=== PATIENT | female | born 1970 | race Caucasian/White ===

== ENCOUNTER → 2023-10-14 11:43 | Outpatient (CLI) | payer OTHER, MEDICAID, SELFPAY ==
--- NOTE | 2023-10-14 | DI.CT.S_ITS ---
PROCEDURE: CT SOFT TISSUE NECK W CON INDICATIONS: Localized swelling, mass and lump, neck TECHNIQUE: After the administration of intravenous contrast, 3.0 mm axial sections acquired from the sella to the aortic arch. Additional oblique axial 3.0 mm sections acquired through the pharynx. 3 mm thick coronal and sagittal reformats were generated. For radiation dose reduction, the following was used: automated exposure control. COMPARISON: None. FINDINGS: Image quality: Excellent. Lymph nodes: No enlarged lymph nodes seen throughout the neck. Vessels: Visualized vasculature appears patent. Neck spaces: In the left lateral neck overlying the mid sternocleidomastoid muscle there is a lobulated well-circumscribed smooth walled mass which measures 1.6 x 2.0 cm axial by 5.2 cm craniocaudal. No cervical adenopathy. This mass measures 36 Hounsfield units. The oropharynx, nasopharynx, and pharynx demonstrate no mucosal lesions. The vocal cords, false vocal cords, pyriform sinuses, epiglottis, vallecula, and tongue base all appear normal. Extramucosal spaces appear unremarkable. Glands: The parotid and submandibular glands appear normal. Thyroid gland is normal. Miscellaneous: Visualized brain and orbits appear normal. Lung apices appear clear. Superficial soft tissues appear normal. Bones: No suspicious bony lesions. Visualized sinuses and mastoids appear unremarkable. IMPRESSION: Soft tissue mass over the left side of the neck lying external to the platysma measuring 1.6 x 2.0 x 5.2 cm. Differential diagnosis includes an enlarged lymph node, branchial cleft cyst, lipoma. Given that it was drained 3 years ago, neoplasm is unlikely. Consider ultrasound for better characterization and possible ultrasound-guided biopsy versus excision. Dictated by: Charlie Ontiveros M.D. on 10/14/2023 at 12:37 Approved by: Charlie Ontiveros M.D. on 10/14/2023 at 12:53
== END ==
PROVIDERS: Referring Provider Otolaryngology; Visit Provider Otolaryngology
DX: R22.1 Localized swelling, mass and lump, neck (principal)
CPT/HCPCS: 70491; Q9967